=== PATIENT | female | born 1955 | race Two or more races ===

== ENCOUNTER 2018-01-25 11:14 | Outpatient (CLI) | payer OTHER | END 2018-01-25 12:15 | disposition home or self-care (01) | LOC: MAMO-SONO 11:14 → NUCLEAR 02-08 13:00 | DX: Z12.31 Encounter for screening mammogram for malignant neoplasm of breast (principal); N60.11 Diffuse cystic mastopathy of right breast; N60.12 Diffuse cystic mastopathy of left breast ==

== ENCOUNTER → 2018-02-08 | Outpatient (CLI) | payer OTHER | END | disposition home or self-care (01) | LOC: NUCLEAR 14:13 | DX: M81.0 Age-related osteoporosis without current pathological fracture (principal) ==

== ENCOUNTER 2019-02-02 09:03 | Outpatient (CLI) | payer OTHER | END 2019-02-02 09:15 | disposition home or self-care (01) | LOC: SONOGRAMA 09:03 | DX: R10.9 Unspecified abdominal pain (principal) ==

== ENCOUNTER → 2021-11-18 10:26 | Outpatient (CLI) | payer OTHER | END | disposition home or self-care (01) | LOC: NUCLEAR 10:26 | PROVIDERS: ATTEND Specialist | DX: M81.0 Age-related osteoporosis without current pathological fracture (principal) ==

== ENCOUNTER 2021-11-18 11:15 | Outpatient (CLI) | payer OTHER | END 2021-11-18 11:25 | disposition home or self-care (01) | LOC: MAMO-SONO 11:15 | PROVIDERS: ATTEND Specialist | DX: N60.11 Diffuse cystic mastopathy of right breast (principal); N60.12 Diffuse cystic mastopathy of left breast ==

== ENCOUNTER 2022-11-23 10:07 | Outpatient (CLI) | payer OTHER | END 2022-11-23 10:22 | disposition home or self-care (01) | LOC: MAMO-SONO 10:07 | PROVIDERS: ATTEND Specialist | DX: N60.11 Diffuse cystic mastopathy of right breast (principal); N60.12 Diffuse cystic mastopathy of left breast; Z12.31 Encounter for screening mammogram for malignant neoplasm of breast ==

== ENCOUNTER → 2025-04-10 | Outpatient (CLI) | payer OTHER | END | disposition home or self-care (01) | LOC: MAMO-SONO 12:50 | PROVIDERS: ATTEND Obstetrics & Gynecology | DX: N60.11 Diffuse cystic mastopathy of right breast (principal); N60.12 Diffuse cystic mastopathy of left breast ==